=== PATIENT | male | born 1945 | race Caucasian/White ===

== ENCOUNTER → 2020-10-06 09:12 | Outpatient (BNVA) | payer MEDICARE, SELFPAY | PROVIDERS: Visit Provider Urology | DX: Z76.89 Persons encountering health services in other specified circumstances (principal) | CPT/HCPCS: Q3014 ==

== ENCOUNTER → 2021-10-12 09:11 | Outpatient (BNVA) | payer MEDICARE, SELFPAY | PROVIDERS: Visit Provider Urology | DX: N40.1 Benign prostatic hyperplasia with lower urinary tract symptoms (principal); N28.1 Cyst of kidney, acquired; N13.8 Other obstructive and reflux uropathy; D17.71 Benign lipomatous neoplasm of kidney | CPT/HCPCS: Q3014 ==

== ENCOUNTER → 2022-10-02 09:24 | Outpatient (BNVA) | payer MEDICARE, SELFPAY | PROVIDERS: PCP Physician Assistant Medical; Visit Provider Urology | DX: N40.1 Benign prostatic hyperplasia with lower urinary tract symptoms (principal); N13.8 Other obstructive and reflux uropathy; N28.1 Cyst of kidney, acquired; D17.71 Benign lipomatous neoplasm of kidney | CPT/HCPCS: 51798; 99212 ==

== ENCOUNTER 2023-10-02 09:06 | Outpatient (AMB) | payer MEDICARE, SELFPAY ==
--- NOTE | 2023-10-02 09:07 | A.OFFVIS_ITS ---
Intake Intake Visit Reasons: 1Y US(set) Intake Note: Patient is Present for Telephone Follow Up For Urology Med: Finasteride, sildenafil, Terazosin Antibiotic Allergy: None Blood Thinner: None Allergies No Known Allergies Allergy (Verified 10/02/22 09:30) Medication List - Last Reconciled 10/02/23 by Ramses Mcdonnell MD atorvastatin 80 mg PO DAILY betamethasone dipropionate 0.05% 1 appl topical BID fexofenadine 60 mg PO BID finasteride 5 mg PO DAILY 90 days flu vacc [id number](65yr up)-PF IM fluocinonide 0.05% topical furosemide 20 mg PO DAILY ketorolac 0.5% 0 drps ophthalmic (eye) lorazepam 1 mg PO BEDTIME PRN lorazepam 0.5 mg PO DAILY PRN losartan 50 mg PO DAILY losartan 100 mg PO DAILY metformin ER 1,000 mg PO BID omeprazole 40 mg PO DAILY terazosin 10 mg PO BEDTIME 90 days HPI HPI Comments History of Present Illness Details Sal is a pleasant male. He is a patient of Dr. Sheehan. He is seen for following urologic conditions - lower urinary tract symptoms - renal cyst Telemedicine Evaluation 15 min Consultation Kynded Lynn Video attempted Stable with urination Cut finasteride back from daily to Friday, Friday, Friday Twelve month follow-up with PSA Renal ultrasound shows stable 3 cm cyst on right side with 1.2 cm AML Lower Urinary Tract Symptoms: 05/11 US with bilateral renal cysts, incomplete emptying, large prostate, AML 1.5cm Current visit is for further evaluation of, lower urinary tract symptoms, predominate obstructive symptoms. Current treatment includes medication, alpha isaac, terazosin 10mg, 5- AR, finasteride. Prostate Symptom Score 6/18 , Moderate (9-19), Bother 3. Symptoms include 6/18 , incomplete emptying, weak stream, nocturia (>2), and are progressing 6/18 , weak stream, nocturia (>2), and are improving. Results from testing include renal/bladder us Yes date 03/31/2018 PVR 200 prostate size 70 Prostate volume 50+gm. Testing at next visit will include bladder scan. Renal lesion: They present for reevaluation of renal mass characterized as, bilateral, simple cyst. Imaging included 10/12 , a renal ultrasound, 2-3.0 cm in size, bilaterally, cyst, no progression, showing class II cyst(s) - 10/13 renal ultrasound 3 cm cyst right side Continue with surveillance imaging [facility] Medical History Chronic obstructive pulmonary disease (COPD) Hypercholesterolemia HTN (hypertension) Renal cyst, acquired Angiomyolipoma of kidney Bladder outlet obstruction Weak urinary stream Nocturia Surgical History History of hip replacement History of knee replacement Family History Other Prostate cancer Review of Systems Const All systems reviewed & are unremarkable except as noted in HPI and below Reports no additional complaints Resp Reports no additional complaints GI Reports no additional complaints Reports as per HPI Musc Reports no additional complaints Physical Exam Telemedicine evaluation Appropriate responses Regular breathing rate and rhythm HEENT Head: Yes normal to inspection Ears: hearing grossly normal bilaterally Eyes General: appearance normal, both eyes and all related structures Neck Neck: Yes normal visual inspection Chest Chest palpation & inspection: normal inspection of the chest Resp Effort & Inspection: normal respiratory effort and able to speak in complete sentences Assessment & Plan Assessment & Plan (1) Angiomyolipoma of kidney: Code(s): D17.71 - Benign lipomatous neoplasm of kidney (2) Renal cyst, acquired: Code(s): N28.1 - Cyst of kidney, acquired (3) BPH w urinary obs/LUTS: Code(s): N40.1 - Benign prostatic hyperplasia with lower urinary tract symptoms; N13.8 - Other obstructive and reflux uropathy Plan Refill medications Twelve month follow-up Medications: Refilled finasteride 5 mg PO DAILY 90 tabs 3RF 90 days D1. - Benign lipomatous neop lasm of kidney terazosin 10 mg PO BEDTIME 90 caps 3RF 90 days D1 - Benign lipomatous neoplasm of kidney Discontinued sildenafil (pulm.hypertension) administer doses at least 4-6 hours apart Discontinued Reason: Patient Completed Course 20 mg PO DAILY PRN 30 tabs 0RF sexual activity Patient Instructions: Imaging studies, laboratory and physical exam results were discussed and reviewed in detail. No major barriers to patient understanding were identified. An opportunity to ask questions regarding the treatment plan was provided. All questions were answered. The patient expressed understanding and agreement with the above treatment plan. The patient is aware they should contact our office by phone for worsening of their current condition or the appearance of new urologic symptoms. Compliance is encouraged with any medications and followup testing that is ordered. It is a privilege to participate in the urologic care of your patient. If you have any questions or concerns regarding treatment for the above conditions, or other urologic issues, please do not hesitate to contact me. The office telephone contact is [phone]. This note is constructed using voice recognition software. While every effort has been made to ensure accuracy gas regulator repairer helper errors may have been included. Yours sincerely, Dr Ramses Mcdonnell MD, [facility] - Urology Providers of Expert, Compassionate Care for the Genitourinary System Telehealth Telehealth Location of provider rendering services: practice address Location of patient: address on file Patient Identification confirmed using: Name, : Yes Telehealth method: voice only Patient verbally consented to treatment: Yes Patient verbally consented to billing insurance company: Yes Patient informed of any privacy concerns related to visit: Yes Coding Level of Care Code Tele Est Pt Level 3 (11655) Diagnoses Angiomyolipoma of kidney D17.71 Renal cyst, acquired N28.1 BPH w urinary obs/LUTS N40.1; N13.8
== END 2023-10-02 09:30 | disposition home or self-care (01) ==
LOC: HO.HUSH 09:06
PROVIDERS: PCP Physician Assistant Medical; Visit Provider Urology
DX: D17.71 Benign lipomatous neoplasm of kidney (principal); N28.1 Cyst of kidney, acquired; N40.1 Benign prostatic hyperplasia with lower urinary tract symptoms; N13.8 Other obstructive and reflux uropathy
CPT/HCPCS: 99442

== ENCOUNTER → 2023-10-02 09:06 | Outpatient (BNVA) | payer MEDICARE, SELFPAY | PROVIDERS: PCP Physician Assistant Medical; Visit Provider Urology ==